=== PATIENT | male | born 1960 ===

== ENCOUNTER 2017-11-27 09:21 | Day surgery (SDC) | payer MEDICARE ==
[2017-09-12 14:18] VITALS: BMI 30.4
[2017-11-27] MEDS ORDERED: Etomidate 20 mg/10ml Inj IV ONE (12:54)
[2017-11-27] MEDS ORDERED: Propofol 10 mg/ml Inj (20 ML) ONE (12:54)
[2017-11-27] MEDS ORDERED: ceFAZolin IV 1 gm in Dextrose 1 GM/50 ML BAG IVPB ONE (13:14)
[2017-11-27] MEDS ORDERED: Midazolam 2 MG/2 ML VIAL ONE (13:20)
[2017-11-27 14:11] VITALS: TEMP 98
[2017-11-27 14:12] VITALS: O2SAT 99
[2017-11-27 15:06] VITALS: BP 118/72; PULSE 84; RESP 25
== END 2017-11-27 15:00 | disposition home or self-care (01) ==
LOC: C.ENDO 09:21
PROVIDERS: ATTEND Internal Medicine Gastroenterology
DX: I85.00 Esophageal varices without bleeding (principal); K76.6 Portal hypertension; R13.10 Dysphagia, unspecified
CPT/HCPCS: 43235; 82948; J2250; J2704